=== PATIENT | female | born 1985 | race Native Hawaiian/Other Pacific Islander ===

== ENCOUNTER 2017-06-28 05:39 | Day surgery (SDC) | payer OTHER ==
[2017-06-28 06:24] VITALS: BP 112/64; PULSE 76; RESP 16; TEMP 98.6; O2SAT 94
[2017-06-28] MEDS ORDERED: MIDAZOLAM 2 MG/2 ML VIAL ONE (07:15)
--- NOTE | 2017-06-28 07:21 | PDANEPAE ---
ANE History of Present Illness Missed Ab. ANE Past Medical History - Cardiovascular History Hx Hypertension: No Hx Arrhythmias: No Hx Chest Pain: No Hx Coronary Artery / Peripheral Vascular Disease: No Hx CHF / Valvular Disease: No Hx Palpitations: No - Pulmonary History Hx COPD: No Hx Asthma/Reactive Airway Disease: No Hx Recent Upper Respiratory Infection: No Hx Oxygen in Use at Home: No Hx Sleep Apnea: No - Endocrine History Hx Diabetes: No Hypothyroid: No Hyperthyroid: No Obesity: no ANE Review of Systems Review of systems is: negative Review of Systems: ANE Patient History - Allergies Allergies/Adverse Reactions: No Known Allergies Allergy (Verified 06/28/17 06:13) - Home Medications Home Medications: Dha 2 tab PO DAILY 06/28/17 [Last Taken 06/27/17 06:30] - Anes Hx Anes Hx: no prior problems ([place] teeth removed.) - Smoking Hx Smoking Status: Never smoked - Alcohol Use Alcohol Use: Occasionally - Family Anes Hx Family Anes Hx: neg - N/A ANE Labs/Vital Signs - Vital Signs Blood Pressure: 112/64 Heart Rate: 76 Respiratory Rate: 16 O2 Sat (%): 94 Height: 165.1 cm Weight: 61.235 kg ANE Physical Exam - Airway Neck exam: FROM Mouth exam: normal dental/mouth exam - Pulmonary Pulmonary: no respiratory distress - Cardiovascular Cardiovascular: regular rate and rhythym - ASA Status ASA Status: I ANE Anesthesia Plan Anesthesia Plan: GA with mask
[2017-06-28] MEDS ORDERED: DOXYCYCLINE HYCLATE 100 MG CAP/TAB PO ONE ×3 (07:30→08:30)
[2017-06-28] MEDS ORDERED: PROPOFOL/EMULSION 500 MG/50 ML BOTTLE IV ONE (07:31)
[2017-06-28] MEDS ORDERED: DEXAMETHASONE 4 MG/ML VIAL ONE ×2 (07:32→07:33)
[2017-06-28] MEDS ORDERED: KETOROLAC 30 MG/1 ML SDV ONE (07:32)
[2017-06-28] MEDS ORDERED: ONDANSETRON 4 MG/2 ML VIAL ONE (07:32)
[2017-06-28] MEDS ORDERED: fentaNYL 100 MCG/2 ML INJ ONE (07:32)
[2017-06-28] MEDS ORDERED: ONDANSETRON 4 MG/2 ML VIAL IVP PRN (08:42)
[2017-06-28] MEDS ORDERED: MEPERIDINE 25 MG/ML SYR IVP PRN (08:42)
[2017-06-28] MEDS ORDERED: NALOXONE HCL 0.4 MG/ML INJ IVP PRN (08:42)
[2017-06-28] MEDS ORDERED: fentaNYL 100 MCG/2 ML INJ IVP PRN (08:42)
[2017-06-28] MEDS ORDERED: LR 500 ML IV PRN (08:42)
[2017-06-28] MEDS ORDERED: HYDROCODONE/APAP 5/325 TAB PO PRN (08:42)
--- NOTE | 2017-06-28 08:48 | POSTANESTH ---
Post Anesthetic Evaluation Cardiovascular Status: Normal, Stable, Similar to Pre-Op Cond Respiratory Status: Normal, Stable, Similar to Pre-op Cond. Level of Consciousness/Mental Status: Can Participate in Eval, Alert and Oriented Pain Control: Adequate, Prn Tx Ordered Nausea/Vomiting Control: Adequate, Prn Tx Ordered Complications Possibly Related to Anesthesia: None Noted
--- NOTE | 2017-06-28 09:20 | GOP ---
[f rep st] OPERATIVE REPORT DATE OF OPERATION: 06/28/2017 SURGEON: Gabrielle Hale DO PUMPING STATION ENGINEER: None. ANESTHESIA: LMA. ANESTHESIOLOGIST: Teja Giron MD PREOPERATIVE DIAGNOSIS: Incomplete . POSTOPERATIVE DIAGNOSIS: Incomplete . PROCEDURE PERFORMED: Suction dilatation and curettage. FINDINGS: Uterus was sounded to 8 cm, and retroverted. No active bleeding noted. Os was closed. It was dilated up to a 7.5 Hegar. A curved 7 mm suction curette was used. Minimal products of conception were noted. No bleeding noted at the end the procedure. Patient tolerated it well. No complications. The patient is O positive, no RhoGAM is needed. All specimens sent to Pathology. SPECIMENS: Products of conception. ESTIMATED BLOOD LOSS: 25 cc. INDICATIONS: Patient is a 32-year-old 1 para 0, who came in about a week ago at 6 weeks; had an ultrasound done that showed an IUP but no heart rate. Patient did opt for medical treatment and had 2 doses of Cytotec, passed quite a bit of tissue and had blood clots (per patient), then came in for a followup ultrasound yesterday which showed possible retained products of conception. The patient did note some clots yesterday. No bleeding today, just spotting, and denies any cramping. Patient was consented. We discussed risks, benefits, and alternatives of the procedure including but not limited to bleeding, infection and risk of uterine perforation. Patient understands all risks at this time and wants to proceed with surgery. DESCRIPTION OF PROCEDURE: Patient was taken to the operating room where anesthesia was obtained with difficulty. Patient was placed in dorsal lithotomy position and prepped and draped ins usual sterile fashion. Patient was placed in Trendelenburg and was given 100 mg doxycycline prior to start of the case. A weighted speculum was placed in the vagina. The anterior lip of the cervix was grasped with single-tooth tenaculum. Uterus sounded to 8 cm. Cervix was then serially dilated with Solitario dilators up to a #7.5, then a 7 mm curved suction curette was introduced. A suction curettage was performed multiple times. Once all products of conception were evacuated. We turned our attention to sharp curettage. This was performed until a gritty surface was appreciated in all 4 quadrants of the uterus. No bleeding noted at the end of the procedure. All instruments were removed from the vagina and no bleeding was noted. An ultrasound was done transabdominally, and there were no retained products seen. The patient tolerated the procedure well. No complications. Sponge, lap, and instrument count correct x2. The patient was then taken into the PACU in stable condition. IV FLUIDS: 1200 cc LR. URINE OUTPUT: Patient emptied bladder prior to the procedure. /[id number]/MODL MTDD
== END 2017-06-28 10:00 | disposition home or self-care (01) ==
LOC: FOBOP 05:39
PROVIDERS: ATTEND Obstetrics & Gynecology
PROC: 10D17ZZ Extraction of Products of Conception, Retained, Via Natural or Artificial Opening (ICD-10-PCS; principal; 2017-06-28)
DX: O03.4 Incomplete spontaneous abortion without complication (principal)
CPT/HCPCS: J1100; J1885; J2250; J2405; J2704; J3010

== ENCOUNTER 2018-04-22 13:52 | Day surgery (SDC) | payer OTHER ==
--- NOTE | 2018-04-22 08:43 | PDGENHP ---
History and Physical History and Physical: HPI: Morenita is a [id number] with MAB @ 7-6wks. She presented to office on 04/21/18 for NOB visit and was unable to detect FHTs. She reported having some spotting on 04/19/18 but no heavy bleeding or cramping. She then had official US 04/21/18 which confirmed MAB @ 7w6d, the GS was measuring >10wks. She is sad/tearful, but appropriate. Review of Systems: Constitutional: Denies any fever, chills, or fatigue HEENT: denies any visual changes, difficulty swallowing, hearing loss Cardiovascular: Denies any chest pain, palpitations, leg swelling Respiratory: denies any cough, wheezing, or shortness of breathe GI: Denies any nausea, vomiting, diarrhea, constipation : denies any dysuria, urgency, frequency; reports +spotting Musculoskeletal: denies any muscle or bone pain Skin: denies any rashes Neuro: denies any headache, seizures, lightheadedness, dizziness, or loss of consciousness Psychiatric: denies any depression, anxiety, or SI/HI thoughts HISTORY: Previous OB history: SAB with D&C 2017 Past medical history: h/o ?hydrosalpinx Past surgical history: oral surgery, D&C Medications: PNV Allergies (list reaction): NKDA LABS: ABO/Rh: O+ PHYSICAL EXAM: Constitutional: WN, A&Ox3 HEENT: normocephalic atraumatic, supple Heart: RRR, no murmur Chest: CTA-B Abdomen: Soft, nontender, gravid SVE: deferred Extremities: no edema, negative homans sign Neuro: grossly normal Psych: normal affect Assessment: 1) [id number] with 7w6d MAB 2) O+ Plan: 1) Admit to hospital 2) proceed with suction D&C with US guidance
--- NOTE | 2018-04-22 15:38 | PDANEPAE ---
ANE History of Present Illness Missed Ab. ANE Past Medical History - Cardiovascular History Hx Hypertension: No Hx Arrhythmias: No Hx Chest Pain: No Hx Coronary Artery / Peripheral Vascular Disease: No Hx CHF / Valvular Disease: No Hx Palpitations: No - Pulmonary History Hx COPD: No Hx Asthma/Reactive Airway Disease: No Hx Recent Upper Respiratory Infection: No Hx Oxygen in Use at Home: No Hx Sleep Apnea: No - Endocrine History Hx Diabetes: No Hypothyroid: No Hyperthyroid: No Obesity: no - Surgical History Prior Surgeries: Prior D&C with general anesthesia. ANE Review of Systems Review of systems is: negative Review of Systems: - Exercise capacity Exercise capacity: >=4 METS ANE Patient History - Allergies Allergies/Adverse Reactions: No Known Allergies Allergy (Verified 06/28/17 06:13) - Home Medications Home Medications: Dha 2 tab PO DAILY 06/28/17 [Last Taken 06/27/17 06:30] - NPO status NPO Since - Liquids (Date): 04/22/18 NPO Since - Liquids (Time): 11:00 NPO Since - Solids (Date): 04/21/18 NPO Since - Solids (Time): 12:00 - Anes Hx Anes Hx: no prior problems - Smoking Hx Smoking Status: Never smoked - Family Anes Hx Family Anes Hx: neg - N/A ANE Labs/Vital Signs - Vital Signs Blood Pressure: 106/63 Heart Rate: 72 Respiratory Rate: 14 O2 Sat (%): 99 ANE Physical Exam - Airway Neck exam: FROM Mallampati Score: Class 1 Mouth exam: normal dental/mouth exam - Pulmonary Pulmonary: no respiratory distress - Cardiovascular Cardiovascular: regular rate and rhythym - ASA Status ASA Status: I ANE Anesthesia Plan Anesthesia Plan: GA with mask
[2018-04-22] MEDS ORDERED: PROPOFOL/EMULSION 500 MG/50 ML BOTTLE IV ONE (15:44)
[2018-04-22] MEDS ORDERED: fentaNYL 100 MCG/2 ML INJ ONE (15:45)
[2018-04-22] MEDS ORDERED: DOXYCYCLINE HYCLATE 100 MG CAP/TAB PO ONE ×2 (15:45)
[2018-04-22] MEDS ORDERED: MIDAZOLAM 2 MG/2 ML VIAL ONE (15:46)
[2018-04-22] MEDS ORDERED: KETOROLAC 30 MG/1 ML SDV ONE (15:49)
[2018-04-22] MEDS ORDERED: DEXAMETHASONE 4 MG/ML VIAL ONE (15:49)
[2018-04-22] MEDS ORDERED: LIDOCAINE 2% 5 ML SDV ONE (15:49)
[2018-04-22] MEDS ORDERED: ONDANSETRON 4 MG/2 ML VIAL ONE (15:49)
--- NOTE | 2018-04-22 16:17 | POSTOPPROG ---
Post Op Note Date of Operation: 04/22/18 Surgeon: Gabrielle Hale Networker: None Anesthesiologist: Teja Vasquez Anesthesia: LMA Pre-op Diagnosis: Missed Ab at 7 6/7 weeks Post-op Diagnosis: Missed Ab at 7 6/7 weeks Indication: 32 y/o with missed Ab at 7 6/7 wks Procedure: Suction D&C under u/s guidance Findings: Uterus sounded to 9-10 cm; No active bleeding; Os closed; Mod amt POCs ; Rh+ Inf/Abcess present in the surg proc area at time of surgery?: No Depth: Organ Space EBL: 50-100 (100 cc) Total fluids administered: 1 L LR UO: Pt emptied bladder prior to OR Complications: None Specimen(s): POCs-sent for genetic testing, Anora
[2018-04-22] MEDS ORDERED: NALOXONE HCL 0.4 MG/ML INJ IVP PRN (17:09)
[2018-04-22] MEDS ORDERED: fentaNYL 100 MCG/2 ML INJ IVP PRN (17:09)
[2018-04-22] MEDS ORDERED: LR 500 ML IV PRN (17:09)
[2018-04-22] MEDS ORDERED: ONDANSETRON 4 MG/2 ML VIAL IVP PRN (17:09)
[2018-04-22] MEDS ORDERED: HYDROCODONE/APAP 5/325 TAB PO PRN (17:09)
[2018-04-22] MEDS ORDERED: METOCLOPRAMIDE 10 MG/2 ML VIAL IVP PRN (17:09)
[2018-04-22 18:10] VITALS: BP 93/61
--- NOTE | 2018-04-22 20:04 | GOP ---
[f rep st] OPERATIVE REPORT DATE OF OPERATION: 04/22/2018 SURGEON: Gabrielle Hale DO [employer] BACK FEEDER: None. ANESTHESIA: LMA. ANESTHESIOLOGIST: Juma Vasquez MD. PREOPERATIVE DIAGNOSIS: Missed at 7 weeks and 6 days. POSTOPERATIVE DIAGNOSIS: Missed at 7 weeks 6 days. PROCEDURE PERFORMED: Suction dilation and curettage under u/s guidance. FINDINGS: On bimanual exam, the patient had approximately a 9-10 week size, anteverted, mobile uterus. No adnexal masses noted. Cervix was closed. No active bleeding noted. Uterus sounded to 9-10 cm. Cervical os was closed and needed to be dilated up to a #8.5 Hegar. There were a moderate amount of POCs noted. The patient is Rh positive. SPECIMENS: Products of conception. They were sent for genetic testing, Anora. ESTIMATED BLOOD LOSS: 100 cc. INDICATIONS: The patient is a 32-year-old 2, para 0-0-1-0, who presented for a followup ultrasound after her initial OB visit. By initial ultrasound done 03/19/18 at 6 3/7 weeks, patient is supposed to be about 10 weeks and 1 day, but gestational sac is only measuring 7 weeks 6 days with no heartbeat noted. The patient had seen Nciole Briggs CNM in our practive. Condolences were given to patient. Discussed treatment options and recommended the patient have a suction D and C since failed medical treatment with previous miscarriage. The patient agrees with the plan. Surgical consents were obtained. Discussed risks, benefits, alternatives with the patient including but not limited to, bleeding, infection, and risk of uterine perforation. The patient understands all risks of the procedure and wants to proceed at this time. Patient was properly consented. She is Rh positive and no Rhogam is needed. DESCRIPTION OF PROCEDURE: The patient was taken to the operating room where anesthesia was administered without difficulty. She was then positioned in the dorsal lithotomy position, prepped and draped in the normal sterile fashion. A bimanual exam was then performed under anesthetic. Next, an open-sided speculum was placed in the vagina. The anterior lip of the cervix was grasped with a Allis clamp. There was no active bleeding noted. Cervix was closed. The cervix was dilated up to a #8.5 Hegar. Uterus was then gently sounded to 9- 10 cm. A size 8 curved suction curette was then used and connected to the suction. It was placed gently in the cervix up to the uterus and a suction curettage was performed. This was done under ultrasound guidance. Multiple passes were made with the suction curettage to remove all products of . Next, we turned our attention to a sharp curettage. This was performed until there was a gritty texture noted in all 4 quadrants of the uterus. Moderate products of conception were noted. We then followed by a final suction curettage to remove any remaining products of conception. Bedside ultrasound revealed a thin endometrial stripe with removal of all products of conception. After the procedure, all vaginal instruments were removed. The cervix did appear hemostatic. The patient was given 100 mg of doxycycline orally prior to the procedure. The patient tolerated the procedure well. No complications. Instrument and sponge counts were all correct x2. The patient was then taken from the operating room to the PACU in stable condition. IV FLUIDS: 1 L of LR. URINE OUTPUT: Patient emptied bladder prior to operating room. /[id number]/MODL MTDD
== END 2018-04-22 18:15 | disposition home or self-care (01) ==
LOC: FSGY 13:52
PROVIDERS: ATTEND Obstetrics & Gynecology
PROC: 10D17ZZ Extraction of Products of Conception, Retained, Via Natural or Artificial Opening (ICD-10-PCS; principal; 2018-04-22)
DX: O02.1 Missed abortion (principal)
CPT/HCPCS: J1100; J1885; J2250; J2405; J2704; J3010